=== PATIENT | female | born 1975 | race Caucasian/White ===

== ENCOUNTER → 2022-03-23 | Emergency (ER) | payer MEDICAID ==
[~2022-03-23] VITALS: Ht 162.6 cm; Wt 46.7 kg
[2022-03-23 11:06] VITALS: BP_SYST 118
== END | disposition left against medical advice (07) ==
LOC: SED 10:48
DX: R22.0 Localized swelling, mass and lump, head (principal); K08.89 Other specified disorders of teeth and supporting structures; Z53.21 Procedure and treatment not carried out due to patient leaving prior to being seen by health care provider